=== PATIENT | male | born 1970 ===

== ENCOUNTER 2018-01-09 11:26 | Emergency (ER) | payer OTHER ==
[2018-01-09 11:43] VITALS: BP 132/77
--- NOTE | 2018-01-09 11:46 | UC ---
Cardiac HPI - HPI Summary HPI Summary: chest tightness x 1 month + fatigue, short of breath no cough , no fever or chills checked his bp last night showed systolic of 200 - History of Current Complaint Chief Complaint: UCChestPain Stated Complaint: SOB, HIGH BP Time Seen by Provider: 01/09/18 11:28 Hx Obtained From: Patient Onset/Duration: Gradual Onset, Lasting Weeks - 4, Still Present Initial Severity: Moderate Current Severity: Mild Pain Intensity: 2 Chest Pain Location: Diffuse Character: Tightness Alleviating Factor(s): Nothing Associated Signs & Symptoms: Positive: Chest Pain, Weakness, SOB. Negative: Vision Changes, Anxiety, Recent Stress, Headaches, Numbness, Tingling, Swelling , Syncope, Fever, Diaphoresis, Nausea/Vomiting, Palpitations, Cough, Hemoptysis , Back Pain, Abdominal Pain, Calf Pain/Swelling - Allergy/Home Medications Allergies/Adverse Reactions: Allergies Allergy/AdvReac Type Severity Reaction Status Date / Time No Known Allergies Allergy Verified 01/09/18 11:32 Home Medications: Home Medications NK [No Home Medications Reported] 01/09/18 [History Confirmed 01/09/18] PMH/Surg Hx/FS Hx/Imm Hx Previously Healthy: Yes - Surgical History Surgical History: Yes Surgery Procedure, Year, and Place: GALL BLADDER REMOVAL - Family History Known Family History: Positive: Cardiac Disease - Social History Alcohol Use: None Substance Use Type: None Smoking Status (MU): Former Smoker Type: Cigarettes When Did the Patient Quit Smoking/Using Tobacco: 2013 Review of Systems Constitutional: Fatigue Skin: Negative Eyes: Negative ENT: Negative Respiratory: Shortness Of Breath Cardiovascular: Chest Pain Gastrointestinal: Negative Genitourinary: Negative Is Patient Immunocompromised?: No All Other Systems Reviewed And Are Negative: Yes Physical Exam Triage Information Reviewed: Yes Appearance: Well-Appearing, No Pain Distress, Well-Nourished Vital Signs: Initial Vital Signs Temp 99 F 01/09/18 11:33 Pulse 75 01/09/18 11:33 Resp 20 01/09/18 11:33 BP 132/77 01/09/18 11:33 Pulse Ox 100 01/09/18 11:33 Vital Signs Reviewed: Yes Eyes: Positive: Conjunctiva Clear ENT Exam: Normal ENT: Positive: Normal ENT inspection, Hearing grossly normal, Pharynx normal Neck: Positive: Supple, Nontender, No Lymphadenopathy Respiratory: Positive: Chest non-tender, Lungs clear, Normal breath sounds Cardiovascular: Positive: RRR, No Murmur, Pulses Normal Abdominal Exam: Normal Abdomen Description: Positive: Nontender, Soft. Negative: CVA Tenderness (R), CVA Tenderness (L), Distended, Guarding Bowel Sounds: Positive: Present Skin Exam: Normal Diagnostics - Laboratory Diagnostic Studies Completed/Ordered: chest xray : IMPRESSION: No evidence for acute intrathoracic disease. - EKG Cardiac Rate: NL Cardiac Rhythm: Sinus: Normal, AFib: Normal, Junctional: Normal Ectopy: None ST Segment: Normal - Clinical Impression Provider Diagnoses: sob. chest tightness Discharge - Sign-Out/Discharge Documenting (check all that apply): Discharge/Admit/Transfer - Discharge Plan Condition: Stable Disposition: HOME Patient Education Materials: Dyspnea (ED) Referrals: No Primary Care Phys,NOPCP [Primary Care Provider] - 7 Days Additional Instructions: will check cbc, cmp , tsh call the office in tomorrow for the results please monitor your Blood Pressure at home daily and keep a log follow up with your pcp in one week - Billing Disposition and Condition Condition: STABLE Disposition: HOME
--- NOTE | 2018-01-09 12:30 | RAD ---
INDICATION: Shortness of breath, chest tightness, fatigue. Symptoms for over a month. COMPARISON: No relevant prior exams available on the [facility] PACS for comparison. TECHNIQUE: Dual energy PA and routine lateral views of the chest were obtained. REPORT: Clear lungs and pleural spaces. Negative for pneumothorax. The heart, pulmonary vasculature, and mediastinal contours are unremarkable. Gallbladder fossa level surgical clips. Unremarkable osseous structures and soft tissue contours. IMPRESSION: No evidence for acute intrathoracic disease.
[2018-01-09 19:17] LABS: ABS Basophils 0 10^3/ul (0-0.2); ABS Eosinophils 0.1 10^3/ul (0-0.6); ABS Lymphocytes 2.4 10^3/ul (1.0-4.8); ABS Monocytes 0.7 10^3/ul (0-0.8); ABS Neutrophils 3.8 10^3/ul (1.5-7.7); ABS Nucleated RBC 0 10^3/ul; Eosinophil % 0.8 % (0-6); Hematocrit 43 % (42-52); Lymphocyte % 34.9 % (25-47); Mean Corpuscular HGB Conc 35 g/dl (31-36); Mean Corpuscular Hemoglobin 31 pg (27-31); Mean Corpuscular Volume 89 fL (80-94); Mean Platelet Volume 7.9 um3 (7.4-10.4); Nucleated Red Blood Cells % 0.1; Platelet Count 227 10^3/ul (150-450); Red Blood Count 4.79 10^6/ul (4.0-5.4); Red Cell Distribution Width 13 % (10.5-15)
[2018-01-09 20:11] LABS: EGFR Non-African American 69.6 (>60)
== END 2018-01-09 12:53 | disposition home or self-care (01) ==
LOC: UCCORT 11:26
DX: R07.89 Other chest pain (principal); R06.02 Shortness of breath; R53.83 Other fatigue; Z87.891 Personal history of nicotine dependence
CPT/HCPCS: 36415; 71046; 80053; 84443; 85025; 93005; 99201; G0463